=== PATIENT | male | born 1975 | race Caucasian/White ===

== ENCOUNTER 2020-04-13 01:58 | Emergency (ER) | payer OTHER ==
[~2020-04-13] VITALS: Ht 182.9 cm; Wt 91.6 kg
[2020-04-13] MEDS ORDERED: LEXAPRO20 MG PO (02:05)
[2020-04-13] MEDS ORDERED: DOXYCYCLINE 10100 M2 PO (02:51)
[2020-04-13] MEDS ORDERED: PROMETH-CODEIN 65 ML PO (02:51)
[2020-04-13 03:42] VITALS: BP 117/79
== END 2020-04-13 03:46 | disposition home or self-care (01) ==
LOC: ER 01:58
DX: U07.1 COVID-19 (principal); J18.1 Lobar pneumonia, unspecified organism; Z79.899 Other long term (current) drug therapy; Z91.09 Other allergy status, other than to drugs and biological substances